=== PATIENT | female | born 1965 | race Caucasian/White ===

== ENCOUNTER 2016-09-25 07:35 | Observation (INO) | payer MEDICAID ==
[~2016-09-25] VITALS: Ht 154.9 cm; Wt 50.0 kg
[~2016-09-25 07:35] MED LIST: ATEN50TA PO; ATOR40TA16 PO; BLOOD GLUCOSE T1 TES; DEPO150I IM; DICL50TA PO; INSU1INJ5 SQ; LEVEMIR; LYRI75CA PO; MEDR150P IM; MELO-1 PO; NOVOLOGP2 SQ; OMEP20TA PO; REGL5TAB PO; TRAM50TA PO; needles
[2016-09-25 07:42] VITALS: BP 177/87; PULSE 88; RESP 20; TEMP 98.7; O2SAT 100
[2016-09-25] MEDS ORDERED: SODIUM CHLORIDE 0.9% FLUSH 10 ML FLUSH IV FLUSH PRN (08:15)
[2016-09-25 08:31] LABS: BASOPHIL # 0.1 TH/MM3 (0-0.2); BASOPHIL % 0.8 % (0.0-2.0); EOSINOPHIL # 0.3 TH/MM3 (0-0.4); EOSINOPHIL % 2.7 % (0.0-4.0); HEMATOCRIT 37.7 % (35.0-46.0); HEMO FLAGS DIFF FINAL; LYMPH % 17.6 % (9.0-44.0); MEAN CELL VOLUME 95.2 FL (80.0-100.0); MEAN CORPUSCULAR HEMOGLOBIN 32.8 PG (27.0-34.0); MEAN CORPUSCULAR HGB CONC 34.4 % (32.0-36.0); MONO % 7.6 % (0.0-8.0); NEUT % 71.3 % (16.0-70.0); PLATELET COUNT 278 TH/MM3 (150-450); RED BLOOD COUNT 3.97 MIL/MM3 (4.00-5.30); RED CELL DISTRIBUTION WIDTH 12.4 % (11.6-17.2); WHITE BLOOD COUNT 11.3 TH/MM3 (4.0-11.0)
--- NOTE | 2016-09-25 08:33 | PD ---
HPI . "Guts are killing me" Chief Complaint: Abdominal Pain Time Seen by Provider: 07:47 Travel History International Travel<30 days: No Contact w/Intl Traveler<30days: No Traveled to known affect area: No History of Present Illness HPI 50 year old female with a history of chronic pancreatitis presents complaining of abdominal pain. Patient reports pain is located "at the pancreas through to the back". Patient also reports that it is in her lower abdomen bilaterally and points to all over her abdomen. Reports that the pain comes and goes and is crampy, occasionally sharp. She currently rates the pain as 8/10. Reports she has had these pains for a long time but they have been "worsening over a long time". She has been out of her tramadol since July and has been unable to get it filled at [facility] and pain management is full for weeks. Per patient, she had a gastric emptying test done at [facility] last month but they never followed up with her. States that the pain is worse with food but this has been ongoing issue for her. States that the "pancreas part is worse with movement". Alleviated partially with tramadol. She denies any fevers, nausea, vomiting, shortness of breath, chest pain, or changes with her urine. She had a bowel movement this morning which she states was small but soft. She reports some associated abdominal bloating. LMP was sometime last month. PFSH Past Medical History Arthritis: Yes Cancer: No Cardiovascular Problems: No Diabetes: Yes Patient Takes Glucophage: No Diminished Hearing: No Endocrine: Yes Gastrointestinal Disorders: Yes (OCCASIONAL GERD) Genitourinary: No Hepatitis: No Hiatal Hernia: No Hypertension: Yes Musculoskeletal: Yes (MID BACK AND NECK DDD) Neurologic: Yes (NEUROPATHY ) Psychiatric: No Reproductive: No Respiratory: No Pancreatitis: Yes Thyroid Disease: No Influenza Vaccination: Yes ?: Not : 4 Para: 4 Past Surgical History Abdominal Surgery: Yes (PANCREAS SURGERY--SIMILAR TO WHIPPLE PROCEDURE, CHOLY) AICD: No Body Medical Devices: SURGICAL CLIPS FROM PANCREATIC SURGERY Cardiac Surgery: No Cholecystectomy: Yes Ear Surgery: No Endocrine Surgery: No Eye Surgery: No Genitourinary Surgery: Yes (LEFT URETER REPAIR) Gynecologic Surgery: No Joint Replacement: No Oral Surgery: No Pacemaker: No Thoracic Surgery: No Other Surgery: Yes Social History Alcohol Use: Yes (occasional) Tobacco Use: Yes (1 PPD FOR 30+ YEARS) Substance Use: No Allergies-Medications (Allergen,Severity, Reaction): Coded Allergies: Penicillin (Verified Allergy, Severe, N/V, 09/25/16) Reported Meds & Prescriptions Reported Meds & Active Scripts Active Tramadol (Tramadol HCl) 50 Mg Tab 50 Mg PO Q6H PRN Lyrica (Pregabalin) 75 Mg Cap 75 Mg PO BID [needles] BID Levemir Flextouch Pen Inj (Insulin Detemir) 300 unit/3 ML Pen 15 Units SQ BID Meloxicam 15 Mg Tab 15 Mg PO DAILY Blood Glucose Test Strips 1 Shoshana Shoshana 1 Strips .ROUTE TIDPC Reglan (Metoclopramide HCl) 5 Mg Tab 5 Mg PO TIDAC Diclofenac Potassium 50 Mg Tab 50 Mg PO TID Depo-Provera Inj (Medroxyprogesterone Inj) 150 Mg/Ml Inj 150 Mg IM Q90D [levemir flextouch] 15 Units BID Depoprovera 150 Mg Vial (Medroxyprogesterone Acetate) 150 Mg/Ml Susp 150 Mg IM Q90D Reported Novolog Inj (Insulin Aspart) 1,000 Unit/10 Ml Vial 1-9 Units SQ ACHS Max dose at bedtime:( )units; sugars less than 70,(0)units; sugars 150-199,(1) unit; sugars 200-249,(3) units; sugars 250-299,(5) units; sugars 300-349,(7) units; sugars greater than 349,(9) units Atenolol 50 Mg Tab 50 Mg PO DAILY Atorvastatin (Atorvastatin Calcium) 40 Mg Tab 40 Mg PO HS Omeprazole 20 Mg Tab 20 Mg PO DAILY Novolog (Insulin Aspart) 100 Units/ML Inj Unknown Dose SQ DIRECTED SLIDING SCALE Review of Systems General / Constitutional: No: Fever, Chills HENT: Positive: Headaches (occasional. ), No: Congestion Cardiovascular: No: Chest Pain or Discomfort, Tachycardia, Edema Respiratory: No: Cough, Shortness of Breath, Wheezing Gastrointestinal: Positive: Abdominal Pain, No: Nausea, Vomiting, Diarrhea Genitourinary: No: Urgency, Frequency, Dysuria Musculoskeletal: Positive: Pain (chronic back pain ) Skin: No Rash Physical Exam Narrative GENERAL: Awake and alert female in no acute distress. SKIN: Warm and dry. No rashes. HEAD: Atraumatic. Normocephalic. EYES: Pupils equal and round. Extraocular eye movements intact. ENT: No nasal bleeding or discharge. Mucous membranes pink and moist. NECK: Trachea midline. Neck supple. CARDIOVASCULAR: Regular rate and rhythm. No murmurs. RESPIRATORY: No accessory muscle use. Lungs clear to auscultation bilaterally. No wheezing. GASTROINTESTINAL: Large midline laparotomy scar. Additional scar in the left lower quadrant. Abdomen soft, non-tender, nondistended. MUSCULOSKELETAL: No obvious deformities. No edema. NEUROLOGICAL: Awake and alert. No obvious cranial nerve deficits. Motor grossly within normal limits. Normal speech. PSYCHIATRIC: Appropriate mood and affect; insight and judgment normal. Data Data Last Documented VS Vital Signs Date Time Temp Pulse Resp B/P Pulse Ox O2 Delivery O2 Flow Rate FiO2 09/25/16 07:42 98.7 88 20 177/87 100 Room Air Orders Complete Blood Count With Diff (09/25/16 08:13) Comprehensive Metabolic Panel (09/25/16 08:13) Lipase (09/25/16 08:13) Abdomen, Flat & Upright (09/25/16 ) Iv Access Insert/Monitor (09/25/16 08:13) Sodium Chloride 0.9% Flush (Ns Flush) (09/25/16 08:15) Urinalysis - C+S If Indicated (09/25/16 08:38) Labs Laboratory Tests Test 09/25/16 09/25/16 08:21 08:40 White Blood Count 11.3 TH/MM3 Red Blood Count 3.97 MIL/MM3 Hemoglobin 13.0 GM/DL Hematocrit 37.7 % Mean Corpuscular Volume 95.2 FL Mean Corpuscular Hemoglobin 32.8 PG Mean Corpuscular Hemoglobin 34.4 % Concent Red Cell Distribution Width 12.4 % Platelet Count 278 TH/MM3 Mean Platelet Volume 8.7 FL Neutrophils (%) (Auto) 71.3 % Lymphocytes (%) (Auto) 17.6 % Monocytes (%) (Auto) 7.6 % Eosinophils (%) (Auto) 2.7 % Basophils (%) (Auto) 0.8 % Neutrophils # (Auto) 8.0 TH/MM3 Lymphocytes # (Auto) 2.0 TH/MM3 Monocytes # (Auto) 0.9 TH/MM3 Eosinophils # (Auto) 0.3 TH/MM3 Basophils # (Auto) 0.1 TH/MM3 CBC Comment DIFF FINAL Differential Comment Sodium Level 135 MEQ/L Potassium Level 3.4 MEQ/L Chloride Level 105 MEQ/L Carbon Dioxide Level 20.9 MEQ/L Anion Gap 9 MEQ/L Blood Urea Nitrogen 9 MG/DL Creatinine 0.71 MG/DL Estimat Glomerular Filtration 87 ML/MIN Rate Random Glucose 185 MG/DL Calcium Level 8.7 MG/DL Total Bilirubin 0.4 MG/DL Aspartate Amino Transf 57 U/L (AST/SGOT) Alanine Aminotransferase 80 U/L (ALT/SGPT) Alkaline Phosphatase 119 U/L Total Protein 7.2 GM/DL Albumin 3.6 GM/DL Lipase 48 U/L Urine Color LIGHT-YELLOW Urine Turbidity CLEAR Urine pH 6.0 Urine Specific [place] 1.004 Urine Protein TRACE mg/dL Urine Glucose (UA) NEG mg/dL Urine Ketones NEG mg/dL Urine Occult Blood NEG Urine Nitrite NEG Urine Bilirubin NEG Urine Urobilinogen LESS THAN 2.0 MG/DL Urine Leukocyte Esterase LARGE Urine RBC LESS THAN 1 /hpf Urine WBC 2 /hpf Urine Squamous Epithelial 3 /hpf Cells Urine Bacteria OCC /hpf Microscopic Urinalysis Comment CULT NOT INDICATED MDM Medical Decision Making Medical Screen Exam Complete: Yes Emergency Medical Condition: Yes Differential Diagnosis Differentials include chronic pancreatitis, gastritis, peptic ulcer, UTI, constipation, GERD. Narrative Course Patient presents complaining of abdominal pain that she has had for a long time but has been progressively worsening. Reports that she has been out of her Tramadol since July and has been unable to get it filled to date. She comes in today because it is becoming unbearable and that she states that she "should have come in sooner". Her physical exam is unremarkable. No signs of acute pancreatitis at this time. She has a history of abdominal surgery in 1992 but has no signs of obstruction at this time. Last Impressions Abdomen X-Ray 09/25/16 0000 Signed Impressions: Service Date/Time: Sunday, September 25, 2016 08:34 - CONCLUSION: 1. Gaseous distention of loops of small bowel the colon but no definite findings to indicate bowel obstruction. 2. No definite renal stones identified. David Hill MD CT for PE was neg. Patient states that she is willing to stay in the [facility] for serial enzymes to make sure that her heart is OK. Diagnosis Primary Impression: Chest pain Qualified Code: R07.9 - Chest pain, unspecified type Admitting Information Admitting Physician Requests: Observation Condition: Stable Lisa Romeo MD Sep 25, 2016 08:33
--- NOTE | 2016-09-25 08:40 | RADRPT ---
EXAM DATE/TIME: 09/25/2016 08:34 [facility] COMPARISON: No previous studies available for comparison. INDICATIONS : Abdominal pain. MEDICAL HISTORY : Pancreatitis. SURGICAL HISTORY : Cholecystectomy. Ureter reconstruction, left. ENCOUNTER: Initial ACUITY: 4 - 6 months PAIN SCORE: 6/10 LOCATION: Bilateral abdomen. FINDINGS: The exam demonstrates gaseous distention of several loops of small bowel in the colon. There is still gas and stool down to the rectum. No definite findings to indicate bowel obstruction are seen. There are multiple surgical clips in the abdomen. No free air is identified. No abnormal calcifications are seen. The bony structures demonstrate degenerative changes but are otherwise intact. CONCLUSION: 1. Gaseous distention of loops of small bowel the colon but no definite findings to indicate bowel ob struction. 2. No definite renal stones identified. David Hill MD on September 25, 2016 at 8:37 Board Certified Radiologist. This report was verified electronically.
[2016-09-25 08:53] LABS: ALT (GPT) 80 U/L (10-53); ANION GAP 9 MEQ/L (5-15); AST (GOT) 57 U/L (15-37); BICARBONATE 20.9 MEQ/L (21.0-32.0); BLOOD UREA NITROGEN 9 MG/DL (7-18); CHLORIDE 105 MEQ/L (98-107); GLOMERULAR FILTRATION RATE 87 ML/MIN (>89); POTASSIUM 3.4 MEQ/L (3.5-5.1); SODIUM (NA) 135 MEQ/L (136-145)
[2016-09-25 08:56] LABS: ALKALINE PHOSPHATASE 119 U/L (45-117); TOTAL BILIRUBIN ADULT 0.4 MG/DL (0.2-1.0)
[2016-09-25 08:57] LABS: BACTERIA, URINE OCC /hpf; BLOOD, URINE NEG (NEG); COMMENT (UR) CULT NOT INDICATED; CULTURE IF INDICATED CULT NOT INDICATED; GLUCOSE,URINE NEG (NEG); KETONE, URINE NEG (NEG); NITRITE,URINE NEG (NEG); SQUAMOUS EPITHELIAL CELL URINE 3 /hpf (0-5); URINE COLOR LIGHT-YELLOW (YELLW/STRAW)
[2016-09-25] MEDS ORDERED: MACR100C2 PO (09:14)
== END 2016-09-25 09:38 | disposition home or self-care (01) ==
LOC: NEPC 07:35 → NEDA 09:08
PROVIDERS: ADMIT Internal Medicine Cardiovascular Disease; ATTEND Internal Medicine Cardiovascular Disease
DX: R10.9 Unspecified abdominal pain (principal); N39.0 Urinary tract infection, site not specified; R07.9 Chest pain, unspecified; R14.0 Abdominal distension (gaseous); M19.90 Unspecified osteoarthritis, unspecified site; Z79.899 Other long term (current) drug therapy
CPT/HCPCS: 74020; 80053; 81001; 83690; 85025; 99284

== ENCOUNTER 2017-12-06 12:37 | Inpatient (IN) ==
[2017-12-06] MEDS ORDERED: MethylPREDNISolone Sod Succinate Inj 125 MG/2 ML Vial IV.PUSH ONE (12:42)
[2017-12-06] MEDS ORDERED: Sod Chloride 0.9% Inj 1,000 ML IV.SIG SCH ×2 (12:45)
[2017-12-06] MEDS ORDERED: Famotidine PF Inj 20 MG/2 ML Vial IV.PUSH ONE (12:49)
--- NOTE | 2017-12-06 12:55 | ED ---
HPI General Chief Complaint: Shortness of Breath/Dyspnea Stated Complaint: Medical Time Seen by Provider: 12/06/17 12:42 Source: patient, EMS, RN notes reviewed and old records reviewed Mode of arrival: EMS Limitations: other (hypotension) History of Present Illness 51 y/o female presents by ambulance with palpable systolic pressure in the 50s and pulse ox of 88 on room air with note of shortness of breath and itchiness all over shortly after taking her Bactrim she was prescribed for cat scratches to her legs. She states she has never had this medication before. She denies complaints other than the itching and shortness of breath but history is limited given initial hypotension and generalized weakness Related Data Home Medications Medication Instructions Recorded Confirmed atenolol 25 mg PO DAILY 12/06/17 12/06/17 atorvastatin 10 mg PO DAILY 12/06/17 12/06/17 insulin detemir U-100 [Levemir 30 unit SUB-Q BID 12/06/17 12/06/17 U-100 Insulin] sulfamethoxazole-trimethoprim 1 tab PO BID 12/06/17 12/06/17 [Bactrim DS] Allergies Allergy/AdvReac Type Severity Reaction Status Date / Time penicillin G Allergy Severe N/V Unverified 10/27/16 22:08 sulfamethoxazole Allergy Severe Hypotension, Verified 12/06/17 13:09 [From Bactrim] shortness of breath trimethoprim [From Bactrim] Allergy Severe Hypotension, Verified 12/06/17 13:09 shortness of breath Review of Systems ROS: all other systems reviewed are negative [facility] Medical History Medical History Diabetes (Acute) Hypertension (Acute) Social History Social History Substance History: No History of Abuse Second Hand Smoke Exposure: No Smoking Status: Never smoker How Often Do You Have a Drink Containing Alcohol: Never Recent Travel in [facility] within the Last 8 Weeks: No Recent Out of Country Travel within the Last 8 Weeks: No Immunization History Tetanus Immunization: Unsure Exam Narrative Exam Narrative: GENERAL: 51 y/o female who appaears ill SKIN: Focused skin assessment warm/dry. Patient has no hives but she has diffuse reddening of her skin with Scratches noted to her lower legs HEAD: Atraumatic. Normocephalic. EYES: Pupils equal and round. No scleral icterus. No injection or drainage. ENT: No nasal bleeding or discharge. Mucous membranes pink and moist. Mild uvula edema NECK: Trachea midline. No JVD. CARDIOVASCULAR: Regular rate and rhythm. RESPIRATORY: No accessory muscle use. Faint expiratory wheezing bilaterally. GASTROINTESTINAL: Abdomen soft, non-tender, nondistended. MUSCULOSKELETAL: No obvious deformities. No clubbing. No cyanosis. No edema. NEUROLOGICAL: Awake and alert. Motor grossly within normal limits. Normal speech. Course Reevaluation(s) Reevaluation #1: On recheck patient's blood pressure has started to improve some after epinephrine and IV fluids. Continue to closely monitor. Reevaluation #2: patient updated and agrees to admit, significantly improved but given initial critical status agrees to observation for further care Consultations Consultation #1: resident team agrees to admit Initial Documented Vital Signs Pulse Rate 113 H 12/06/17 12:38 Respiratory Rate 20 12/06/17 12:38 Blood Pressure 69/48 L 12/06/17 12:38 Pulse Oximetry 94 L 12/06/17 12:38 Last Documented Vital Signs Pulse Rate 82 12/06/17 14:17 Respiratory Rate 19 12/06/17 14:17 Blood Pressure 134/70 12/06/17 14:17 Pulse Oximetry 100 12/06/17 14:17 Critical Care Time Critical Care Time: Yes Total Critical Care Time: 45 Attestation: Aggregate critical care time was 45 minutes. Time to perform other separately billable procedures was not included in the critical care time. My time did not include minutes spent treating any other patients simultaneously or on activities that did not directly contribute to the patient's treatment. The services I provided to this patient were to treat and/or prevent clinically significant deterioration that could result in: shock, I provided critical care services requiring my management, as noted below: Chart data review, documentation time, medication orders and management, vital sign assessments/reviewing monitor data, ordering and reviewing lab tests, ordering and interpreting/reviewing x-rays and diagnostic studies, care of the patient and discussion of the patient with the admitting physicians. Medical Decision Making MDM Narrative Medical decision making narrative: Patient arrived hypotensive and hypoxic after new medication with symptoms of shortness of breath and itchiness all over. Patient given 0.3 mg of epinephrine injection while getting IV access. Once IV was obtained she was given IV fluid boluses and blood work was sent in addition to further allergic reaction treatment with steroids, Pepcid, Benadryl and she will be monitored closely Medical Screen Exam Complete: Yes Emergency Medical Condition: Yes Differential Diagnosis Differential Diagnosis: Anaphylactic shock, sepsis, anemia, pneumonia, pneumothorax Lab Data Lab results reviewed: Yes I reviewed the patient's lab results. Result diagrams: 12/06/17 12:53 12/06/17 12:53 Lab Results 12/06/17 12/06/17 12/06/17 Range/Units 12:53 12:53 12:53 WBC 9.4 (4.0-11.0) th/mm3 RBC 4.54 (4.00-5.30) mil/mm3 Hgb 15.4 H (11.6-15.3) gm/dL Hct 44.4 (35.0-46.0) % MCV 98.0 (80.0-100.0) fL MCH 33.8 (27.0-34.0) pg MCHC 34.5 (32.0-36.0) % RDW 13.0 (11.6-17.2) % Plt Count 428 (150-450) th/mm3 MPV 8.3 (7.0-11.0) fL Neut % (Auto) 62.8 (16.0-70.0) % Lymph % (Auto) 28.6 (9.0-44.0) % Foard % (Auto) 6.1 (0.0-8.0) % Eos % (Auto) 1.8 (0.0-4.0) % Baso % (Auto) 0.7 (0.0-2.0) % Neut # (Auto) 5.9 (1.8-7.7) th/mm3 Lymph # (Auto) 2.7 (1.0-4.8) th/mm3 Foard # (Auto) 0.6 (0.0-0.9) th/mm3 Eos # (Auto) 0.2 (0.0-0.4) th/mm3 Baso # (Auto) 0.1 (0.0-0.2) th/mm3 WBC Differential . Differential Comment Auto diff final PT 10.0 (9.8-11.6) sec INR 1.0 Ratio APTT 21.8 L (24.3-30.1) sec Puncture Site Patient Temperature O2 Saturation (90-100) % ABG pH (7.380-7.420) ABG pCO2 (38-42) mmHg ABG pO2 (61-120) mmHg ABG HCO3 (22-26) mmol/L ABG O2 Content (12.0-20.0) Vol % ABG Base Excess (-2-2) mmol/L ABG Methemoglobin (0-2) % Dejuan Test Hemoglobin (12.0-16.0) G/DL Carboxyhemoglobin (0-4) % O2 Delivery Device Liter Flow L/M Critical Value Sodium 143 (136-145) meq/L Potassium 3.4 L (3.5-5.1) meq/L Chloride 108 H (98-107) meq/L Carbon Dioxide 20.7 L (21.0-32.0) meq/L Anion Gap 14 (5-15) meq/L BUN 18 (7-18) mg/dL Creatinine 1.00 (0.50-1.00) mg/dL Estimated GFR 58 L (>89) mL/min Random Glucose 250 H (74-106) mg/dL Lactic Acid (0.4-2.0) mmol/L Calcium 7.6 L (8.5-10.1) mg/dL Magnesium 1.5 (1.5-2.5) mg/dL Total Bilirubin 0.2 (0.2-1.0) mg/dL AST 12 L (15-37) U/L ALT 14 (10-53) U/L Alkaline Phosphatase 91 (45-117) U/L Total Creatine Kinase 77 (26-192) U/L Troponin I Less than 0.02 L (0.02-0.05) ng/mL B-Natriuretic Peptide (0-100) pg/mL Total Protein 5.5 L (6.4-8.2) g/dL Albumin 2.6 L (3.4-5.0) g/dL Urine Color (Yellw/Straw) Urine Clarity (Clear) Urine pH (5.0-8.5) Ur Specific [place] (1.002-1.035) Urine Protein (Neg-Trace) mg/dL Urine Glucose (UA) (Negative) mg/dL Urine Ketones (Negative) mg/dL Urine Occult Blood (Negative) Urine Nitrate (Negative) Urine Bilirubin (Negative) Urine Urobilinogen (Less than 2) mg/dL Ur Leukocyte Esterase (Negative) Urine RBC (0-3) /hpf Urine WBC (0-5) /hpf Ur Squamous Epith Cells (0-5) /hpf Amorphous Sediment (None) /hpf Urine Bacteria (None) /hpf Urine Mucus (Occasional) /lpf Micro UA Comment Ur Microscopic Review Urine Culture Comments 12/06/17 12/06/17 12/06/17 Range/Units 12:53 12:53 12:55 WBC (4.0-11.0) th/mm3 RBC (4.00-5.30) mil/mm3 Hgb (11.6-15.3) gm/dL Hct (35.0-46.0) % MCV (80.0-100.0) fL MCH (27.0-34.0) pg MCHC (32.0-36.0) % RDW (11.6-17.2) % Plt Count (150-450) th/mm3 MPV (7.0-11.0) fL Neut % (Auto) (16.0-70.0) % Lymph % (Auto) (9.0-44.0) % [place]oard % (Auto) (0.0-8.0) % Eos % (Auto) (0.0-4.0) % Baso % (Auto) (0.0-2.0) % Neut # (Auto) (1.8-7.7) th/mm3 Lymph # (Auto) (1.0-4.8) th/mm3 Foard # (Auto) (0.0-0.9) th/mm3 Eos # (Auto) (0.0-0.4) th/mm3 Baso # (Auto) (0.0-0.2) th/mm3 WBC Differential Differential Comment PT (9.8-11.6) sec INR Ratio APTT (24.3-30.1) sec Puncture Site Patient Temperature O2 Saturation (90-100) % ABG pH (7.380-7.420) ABG pCO2 (38-42) mmHg ABG pO2 (61-120) mmHg ABG HCO3 (22-26) mmol/L ABG O2 Content (12.0-20.0) Vol % ABG Base Excess (-2-2) mmol/L ABG Methemoglobin (0-2) % Dejuan Test Hemoglobin (12.0-16.0) G/DL Carboxyhemoglobin (0-4) % O2 Delivery Device Liter Flow L/M Critical Value Sodium (136-145) meq/L Potassium (3.5-5.1) meq/L Chloride (98-107) meq/L Carbon Dioxide (21.0-32.0) meq/L Anion Gap (5-15) meq/L BUN (7-18) mg/dL Creatinine (0.50-1.00) mg/dL Estimated GFR (>89) mL/min Random Glucose (74-106) mg/dL Lactic Acid 2.6 H (0.4-2.0) mmol/L Calcium (8.5-10.1) mg/dL Magnesium Cancelled (1.5-2.5) mg/dL Total Bilirubin (0.2-1.0) mg/dL AST (15-37) U/L ALT (10-53) U/L Alkaline Phosphatase (45-117) U/L Total Creatine Kinase Cancelled (26-192) U/L Troponin I (0.02-0.05) ng/mL B-Natriuretic Peptide 12 (0-100) pg/mL Total Protein (6.4-8.2) g/dL Albumin (3.4-5.0) g/dL Urine Color (Yellw/Straw) Urine Clarity (Clear) Urine pH (5.0-8.5) Ur Specific [place] (1.002-1.035) Urine Protein (Neg-Trace) mg/dL Urine Glucose (UA) (Negative) mg/dL Urine Ketones (Negative) mg/dL Urine Occult Blood (Negative) Urine Nitrate (Negative) Urine Bilirubin (Negative) Urine Urobilinogen (Less than 2) mg/dL Ur Leukocyte Esterase (Negative) Urine RBC (0-3) /hpf Urine WBC (0-5) /hpf Ur Squamous Epith Cells (0-5) /hpf Amorphous Sediment (None) /hpf Urine Bacteria (None) /hpf Urine Mucus (Occasional) /lpf Micro UA Comment Ur Microscopic Review Urine Culture Comments 12/06/17 12/06/17 Range/Units 12:57 16:12 WBC (4.0-11.0) th/mm3 RBC (4.00-5.30) mil/mm3 Hgb (11.6-15.3) gm/dL Hct (35.0-46.0) % MCV (80.0-100.0) fL MCH (27.0-34.0) pg MCHC (32.0-36.0) % RDW (11.6-17.2) % Plt Count (150-450) th/mm3 MPV (7.0-11.0) fL Neut % (Auto) (16.0-70.0) % Lymph % (Auto) (9.0-44.0) % [place] % (Auto) (0.0-8.0) % Eos % (Auto) (0.0-4.0) % Baso % (Auto) (0.0-2.0) % Neut # (Auto) (1.8-7.7) th/mm3 Lymph # (Auto) (1.0-4.8) th/mm3 [place] # (Auto) (0.0-0.9) th/mm3 Eos # (Auto) (0.0-0.4) th/mm3 Baso # (Auto) (0.0-0.2) th/mm3 WBC Differential Differential Comment PT (9.8-11.6) sec INR Ratio APTT (24.3-30.1) sec Puncture Site Right radial Patient Temperature 98.6 O2 Saturation 89 L* (90-100) % ABG pH 7.41 (7.380-7.420) ABG pCO2 35 L (38-42) mmHg ABG pO2 72 (61-120) mmHg ABG HCO3 22 (22-26) mmol/L ABG O2 Content 17.6 (12.0-20.0) Vol % ABG Base Excess -2.3 L (-2-2) mmol/L ABG Methemoglobin 0.7 (0-2) % Dejuan Test Y Hemoglobin 14.0 (12.0-16.0) G/DL Carboxyhemoglobin 4.2 H (0-4) % O2 Delivery Device Nasal cannula Liter Flow 3.00 L/M Critical Value Yes Sodium (136-145) meq/L Potassium (3.5-5.1) meq/L Chloride (98-107) meq/L Carbon Dioxide (21.0-32.0) meq/L Anion Gap (5-15) meq/L BUN (7-18) mg/dL Creatinine (0.50-1.00) mg/dL Estimated GFR (>89) mL/min Random Glucose (74-106) mg/dL Lactic Acid (0.4-2.0) mmol/L Calcium (8.5-10.1) mg/dL Magnesium (1.5-2.5) mg/dL Total Bilirubin (0.2-1.0) mg/dL AST (15-37) U/L ALT (10-53) U/L Alkaline Phosphatase (45-117) U/L Total Creatine Kinase (26-192) U/L Troponin I (0.02-0.05) ng/mL B-Natriuretic Peptide (0-100) pg/mL Total Protein (6.4-8.2) g/dL Albumin (3.4-5.0) g/dL Urine Color Straw (Yellw/Straw) Urine Clarity Clear (Clear) Urine pH 6.0 (5.0-8.5) Ur Specific [place] 1.005 (1.002-1.035) Urine Protein Negative (Neg-Trace) mg/dL Urine Glucose (UA) 150 H (Negative) mg/dL Urine Ketones Negative (Negative) mg/dL Urine Occult Blood Small H (Negative) Urine Nitrate Negative (Negative) Urine Bilirubin Negative (Negative) Urine Urobilinogen Less than 2 (Less than 2) mg/dL Ur Leukocyte Esterase Negative (Negative) Urine RBC 1 (0-3) /hpf Urine WBC 1 (0-5) /hpf Ur Squamous Epith Cells 1 (0-5) /hpf Amorphous Sediment Rare H (None) /hpf Urine Bacteria Rare H (None) /hpf Urine Mucus Few H (Occasional) /lpf Micro UA Comment Culture not ind Ur Microscopic Review Not Reportable Urine Culture Comments Culture not ind Imaging Data Attestation: I personally reviewed and interpreted this imaging study as follows : Radiologist's impression: Chest X-Ray 12/06/17 12:42 CONCLUSION: 1. No acute cardiopulmonary disease. Discharge Plan Discharge Disposition Patient Disposition: 30 Still Patient Discharge Details Diagnosis: Anaphylaxis caused by sulfite salt Physicians Team ED Provider: Trudy Moody Primary Care Provider: UNKNOWN, Attending Provider: Milad,Bria Discharge Interventions Interventions: Vital Signs Last Done: 12/06/17 14:17 Status ED Status: Admitted Patient
[2017-12-06 13:11] LABS: Baso # (Auto) 0.1 th/mm3 (0.0-0.2); Baso % (Auto) 0.7 % (0.0-2.0); Eos # (Auto) 0.2 th/mm3 (0.0-0.4); Eos % (Auto) 1.8 % (0.0-4.0); Hematocrit 44.4 % (35.0-46.0); Hemoglobin 15.4 gm/dL (11.6-15.3); Lymph # (Auto) 2.7 th/mm3 (1.0-4.8); Lymph % (Auto) 28.6 % (9.0-44.0); Mean Corpuscular HGB Conc 34.5 % (32.0-36.0); Mean Corpuscular Hemoglobin 33.8 pg (27.0-34.0); Mean Platelet Volume 8.3 fL (7.0-11.0); Mono # (Auto) 0.6 th/mm3 (0.0-0.9); Mono % (Auto) 6.1 % (0.0-8.0); Neut # (Auto) 5.9 th/mm3 (1.8-7.7); Neut % (Auto) 62.8 % (16.0-70.0); Platelet Count 428 th/mm3 (150-450); Red Blood Count 4.54 mil/mm3 (4.00-5.30); White Blood Count 9.4 th/mm3 (4.0-11.0)
--- NOTE | 2017-12-06 13:21 | XR ---
EXAM DATE: 12/06/2017 1:14 PM EDT AGE/SEX: 51 years / Female INDICATIONS: Short of breath. CLINICAL DATA: This is the patient's initial encounter. Patient reports that signs and symptoms have been present for 1 day and indicates a pain score of 0/10. MEDICAL/SURGICAL HISTORY: . smokes, pancreatitis Cholecystectomy. left ureter reconstruction. COMPARISON: [facility], XR CHEST PA AND LAT, 04/10/2015. . FINDINGS: A single AP view of the chest demonstrates the lungs to be symmetrically aerated without evidence of mass, infiltrate or effusion. The cardiomediastinal contours are unremarkable. Osseous structures a re intact. CONCLUSION: 1. No acute cardiopulmonary disease. Electronically signed by: Juan Diego Reid MD 12/06/2017 1:19 PM EDT
[2017-12-06 13:22] LABS: Activated Partial Thrombo Time 21.8 sec (24.3-30.1)
[2017-12-06 13:41] LABS: ABG Base Excess -2.3 mmol/L (-2-2); ABG PCO2 35 mmHg (38-42); ABG PO2 72 mmHg (61-120)
[2017-12-06 15:07] LABS: Alanine Aminotransferase 14 U/L (10-53); Albumin 2.6 g/dL (3.4-5.0); Anion Gap 14 meq/L (5-15); Aspartate Aminotransferase 12 U/L (15-37); Blood Urea Nitrogen 18 mg/dL (7-18); Calcium 7.6 mg/dL (8.5-10.1); Carbon Dioxide 20.7 meq/L (21.0-32.0); Chloride 108 meq/L (98-107); Glomerular Filtration Rate 58 mL/min (>89); Glucose,Random 250 mg/dL (74-106); Magnesium 1.5 mg/dL (1.5-2.5); Potassium 3.4 meq/L (3.5-5.1); Sodium 143 meq/L (136-145)
[2017-12-06 15:12] LABS: Alkaline Phosphatase 91 U/L (45-117); Total Protein 5.5 g/dL (6.4-8.2)
[2017-12-06 15:14] LABS: Creatine Kinase 77 U/L (26-192)
[2017-12-06] MEDS ORDERED: Sodium Chlor 0.9% Inj 500 ML IV.SIG SCH (16:00)
[2017-12-06 16:33] LABS: Amorphous Sediment,Urine Rare /hpf; Bacteria,Urine Rare /hpf; Bilirubin,Urine Negative (Negative); Clarity,Urine Clear (Clear); Color,Urine Straw (Yellw/Straw); Glucose,Urine (UA) 150 mg/dL (Negative); Leukocyte Esterase,Urine Negative (Negative); Mucus,Urine Few /lpf (Occasional); Nitrite,Urine Negative (Negative); Specific Gravity,Urine 1.005 (1.002-1.035); Squamous Epithelial Cell,Urine 1 /hpf (0-5)
--- NOTE | 2017-12-06 17:20 | P.PNFP ---
Subjective Interval history: This is a 51-year-old female who was seen for her description of cat scratches which she thought were infected, treated at [facility] and given a prescription for Bactrim. She picked up the prescription, took the Bactrim at home, and reports that within 5-15 minutes she started to have difficulty breathing she was itchy and became frightened and called 911. She was unable to speak but her son apparently came in and was able to speak for her. [facility] was unable to get access but she was successfully resuscitated in the emergency department with steroids and H2 blockers and fluids. Initially her blood pressure was 58 and she was essentially unresponsive. She is seen today after having been resuscitated and received 2 L of fluids. She still does not feel quite right. She reports that she has had a kitten that she rescued approximately a month ago and has been receiving scratches and bites from this kitten often. She thinks that some of the lesions on her legs may be infected, she has been using Neosporin, peroxide, other antibiotic creams to no avail. She does not really know how long she has had these lesions. She is a smoker, a pack per day for 30 years. Please see history and physical examination for this admission for additional historical details including past, family, social history and review of systems at the time of admission. Results - Labs Result diagrams: 12/06/17 12:53 12/06/17 12:53 Abnormal lab results 12/06/17 12/06/17 12/06/17 Range/Units 12:53 12:53 12:53 Hgb 15.4 H (11.6-15.3) gm/dL APTT 21.8 L (24.3-30.1) sec O2 Saturation (90-100) % ABG pCO2 (38-42) mmHg ABG Base Excess (-2-2) mmol/L Carboxyhemoglobin (0-4) % Potassium 3.4 L (3.5-5.1) meq/L Chloride 108 H (98-107) meq/L Carbon Dioxide 20.7 L (21.0-32.0) meq/L Estimated GFR 58 L (>89) mL/min Random Glucose 250 H (74-106) mg/dL Lactic Acid (0.4-2.0) mmol/L Calcium 7.6 L (8.5-10.1) mg/dL AST 12 L (15-37) U/L Troponin I Less than 0.02 L (0.02-0.05) ng/mL Total Protein 5.5 L (6.4-8.2) g/dL Albumin 2.6 L (3.4-5.0) g/dL Urine Glucose (UA) (Negative) mg/dL Urine Occult Blood (Negative) Amorphous Sediment (None) /hpf Urine Bacteria (None) /hpf Urine Mucus (Occasional) /lpf 12/06/17 12/06/17 12/06/17 Range/Units 12:55 12:57 16:12 Hgb (11.6-15.3) gm/dL APTT (24.3-30.1) sec O2 Saturation 89 L* (90-100) % ABG pCO2 35 L (38-42) mmHg ABG Base Excess -2.3 L (-2-2) mmol/L Carboxyhemoglobin 4.2 H (0-4) % Potassium (3.5-5.1) meq/L Chloride (98-107) meq/L Carbon Dioxide (21.0-32.0) meq/L Estimated GFR (>89) mL/min Random Glucose (74-106) mg/dL Lactic Acid 2.6 H (0.4-2.0) mmol/L Calcium (8.5-10.1) mg/dL AST (15-37) U/L Troponin I (0.02-0.05) ng/mL Total Protein (6.4-8.2) g/dL Albumin (3.4-5.0) g/dL Urine Glucose (UA) 150 H (Negative) mg/dL Urine Occult Blood Small H (Negative) Amorphous Sediment Rare H (None) /hpf Urine Bacteria Rare H (None) /hpf Urine Mucus Few H (Occasional) /lpf Short CBC 12/06/17 Range/Units 12:53 WBC 9.4 (4.0-11.0) th/mm3 Hgb 15.4 H (11.6-15.3) gm/dL Hct 44.4 (35.0-46.0) % Plt Count 428 (150-450) th/mm3 BMP 12/06/17 12:53 Sodium 143 Potassium 3.4 L Chloride 108 H Carbon Dioxide 20.7 L BUN 18 Creatinine 1.00 Calcium 7.6 L Cardiac Enzymes 12/06/17 12/06/17 Range/Units 12:53 12:53 Total Creatine Kinase 77 Cancelled (26-192) U/L Troponin I Less than 0.02 L (0.02-0.05) ng/mL Liver Function 12/06/17 Range/Units 12:53 Total Bilirubin 0.2 (0.2-1.0) mg/dL AST 12 L (15-37) U/L ALT 14 (10-53) U/L Alkaline Phosphatase 91 (45-117) U/L Albumin 2.6 L (3.4-5.0) g/dL Urine 12/06/17 Range/Units 16:12 Urine Color Straw (Yellw/Straw) Urine Clarity Clear (Clear) Urine pH 6.0 (5.0-8.5) Ur Specific [place] 1.005 (1.002-1.035) Urine Protein Negative (Neg-Trace) mg/dL Urine Glucose (UA) 150 H (Negative) mg/dL - Imaging Impressions Chest X-Ray 12/06/17 12:42 CONCLUSION: 1. No acute cardiopulmonary disease. Physical Exam Vital signs: Vital Signs 12/06/17 12:38 12/06/17 12:45 12/06/17 13:13 Pulse Rate 113 H 94 H Respiratory Rate 20 22 Blood Pressure 69/48 L 133/59 L Pulse Oximetry 94 L 94 L 100 12/06/17 13:14 12/06/17 14:17 Pulse Rate 82 Respiratory Rate 19 Blood Pressure 134/70 Pulse Oximetry 98 100 Intake & Output 12/05/17 12/06/17 12/06/17 18:59 06:59 18:59 Intake Total 1999 Balance 1999 Weight 58.967 kg Intake: IV 1999 NS Inj 1,000 ML @ Wide Open IV. 1999 SIG BOLUS SHAD Rx#:[id number] - Additional findings Additional findings: GENERAL: Well-nourished, well-developed patient. Pleasant. No acute distress. Coughing frequently SKIN: Warm and dry. She has a few scratches on the right lower extremity and multiple ulcerated chronic and scarred lesions on the left lower extremity and on both forearms which appear to have been chronically disrupted. HEAD: Normocephalic, atraumatic. EYES: No scleral icterus. No injection or drainage. Extraocular movements intact. Conjunctivae pink. CARDIAC: Normal rate and regular rhythm, normal S1/S2, no murmur, rub or gallop. RESPIRATORY: CTAB, no crackles or wheezes. No accessory muscle use. Coughing frequently GASTROINTESTINAL: Abdomen nondistended. Bowel sounds present MUSCULOSKELETAL: No cyanosis or edema. NEURO: Cranial nerves II through XII grossly intact. No obvious focal neurologic deficits. Moves all extremities well. Normal gait. PSYCH: Normal mood and affect. Good eye contact. Fair insight and judgment. Normal speech. Assessment and Plan - Assessment (1) Anaphylaxis caused by sulfite salt Code(s): T50.3X1A - Poisoning by electrolytic, caloric and water-balance agents , accidental (unintentional), initial encounter Status: Acute - Assessment and Plan Discussed Condition With: The medicine B team Discharge Planning: See orders. Certainly will observe overnight for stability. - Attending Attestation Patient seen, examined and discussed with the medicine team. See orders. I agree with the plan.
[2017-12-06] MEDS ORDERED: Dextrose 50% in Water 50 ML Vial IV.PUSH PRN ×2 (17:28→17:30)
[2017-12-06] MEDS ORDERED: Sodium Chloride 0.9% 2 ML Flush PRN IV.FLUSH (17:53)
--- NOTE | 2017-12-06 19:15 | P.HPFP ---
History of Present Illness Primary Care Physician: UNKNOWN Chief Complaint: Anaphylactic shock History of Present Illness: Patient is a 51-year-old female with a history of hypertension, hyperlipidemia, and diabetes who presented after being brought by EMS for anaphylactic shock about 15 minutes after taking Bactrim. She was seen at the [facility] and given a prescription for Bactrim for what she describes as infection of cat scratches. She reports that she has never taken this medicine before, and that she started feeling itchy 5 minutes after taking Bactrim. She then called 911 and was unable to speak on the phone. EMS was unable to obtain IV access, she was brought to the hospital, initial systolic blood pressure in the ED was in the 50s, she was unresponsive, she was given IM epinephrine, 2 L of normal saline, IV Decadron, Pepcid, and Benadryl. She reports that she got this kitten more than 1 month ago and has multiple scratches all over her body from said kitten. It is unclear how long she has had many of these lesions She has a past medical history significant for hypertension, hyperlipidemia, and diabetes. She is a pack per day smoker with a 20 pack year history. She lives by herself and expresses no concerns with the stability of her housing. - Diagnosis (1) Anaphylaxis caused by sulfite salt (2) Skin lesion (3) Hypertension (4) Hyperlipemia Inpatient Certification: I certify that the inpatient services were ordered in accordance with Medicare regulations governing the order. This includes certification that hospital inpatient services are reasonable and necessary and in the case of services not specified as inpatient-only under 42 CFR 419.22(n), that they are appropriately provided as inpatient services in accordance to with the 2-midnight benchmark under 43 CFR 412.3(e) Estimated Total Length of Stay (Days): 1 Plans for Post Hospital Care: Home Review of Systems Constitutional: Denies body ache(s), Denies chills, Denies fever(s), Denies weakness Eyes: Denies change in vision Ears, Nose, Mouth, and Throat: Denies abnormal hearing Cardiovascular: Reports chest pain Comments: No change in chest pain from baseline Respiratory: Reports cough, Reports shortness of breath, Denies chest congestion Comments: No change in shortness of breath from baseline Gastrointestinal: Denies abdominal pain, Denies change in bowel habits Comments: Denies dysuria PMFSH - History History Provided By: Patient - Medical History Medical History: Medical History (Last Updated 12/06/17 @ 18:50 by Ned Ontiveros MD, R1) Diabetes Hyperlipemia Hypertension - Social History I have reviewed the patient's Social History: Yes - Tobacco History Second Hand Smoke Exposure: No Tobacco Use In Past 30 Days: Yes Smoking Status: Current every day smoker (1 PPD) Tobacco Type: Cigarettes - Alcohol History How Often Do You Have a Drink Containing Alcohol: Never - Substance Use History Substance History: No History of Abuse - Travel History Recent Travel in the [facility] Within the Last 8 Weeks: No Recent Travel Out of the Country Within the Last 8 Weeks: No - Immunization History Tetanus Immunization: Unsure Medications and Allergies Active Medications: Active Medications Atenolol (Tenormin) 25 mg PO DAILY SHAD Atorvastatin Calcium (Lipitor) 10 mg PO HS SHAD Dextrose (D50w Vial) 50 ml IV.PUSH UNSCH PRN PRN Reason: PER HYPOGLYCEMIA PROTOCOL Diphenhydramine HCl (Benadryl) 25 mg PO Q6H PRN PRN Reason: ITCHING Glucagon (Glucagon Inj) 1 mg OTHER PRN PRN PRN Reason: for Hypoglycemia Protocol Sodium Chloride (Ns Inj) 1,000 mls @ 0 mls/hr IV.SIG BOLUS SHAD Last Infusion: 12/06/17 14:04 Dose: Infused Sodium Chloride (Ns Inj) 1,000 mls @ 0 mls/hr IV.SIG BOLUS SHAD Last Infusion: 12/06/17 14:04 Dose: Infused Sodium Chloride (Ns Inj) 500 mls @ 0 mls/hr IV.SIG BOLUS SHAD Insulin Aspart (Novolog Insulin Correctional Sugar Inj) 0 unit SQ ACHS SHAD; Protocol Insulin Detemir (Levemir Inj) 30 unit SQ BID SHAD Sodium Chloride (Ns Flush) 2 ml IV.FLUSH BID SHAD Sodium Chloride (Ns Flush) 2 ml IV.FLUSH PRN PRN PRN Reason: FLUSH AFTER USING IV ACCESS Allergies Allergy/AdvReac Type Severity Reaction Status Date / Time penicillin G Allergy Severe N/V Unverified 10/27/16 22:08 sulfamethoxazole Allergy Severe Hypotension, Verified 12/06/17 13:09 [From Bactrim] shortness of breath trimethoprim [From Bactrim] Allergy Severe Hypotension, Verified 12/06/17 13:09 shortness of breath Home Medications Medication Instructions Recorded Confirmed Type atenolol 25 mg PO DAILY 12/06/17 12/06/17 History atorvastatin 10 mg PO DAILY 12/06/17 12/06/17 History insulin detemir U-100 [Levemir 30 unit SUB-Q BID 12/06/17 12/06/17 History U-100 Insulin] sulfamethoxazole-trimethoprim 1 tab PO BID 12/06/17 12/06/17 History [Bactrim DS] Exam Vital signs: Vital Signs 12/06/17 12:38 12/06/17 12:45 12/06/17 13:13 Pulse Rate 113 H 94 H Respiratory Rate 20 22 Blood Pressure 69/48 L 133/59 L Pulse Oximetry 94 L 94 L 100 12/06/17 13:14 12/06/17 14:17 Pulse Rate 82 Respiratory Rate 19 Blood Pressure 134/70 Pulse Oximetry 98 100 Intake & Output 12/05/17 12/06/17 12/06/17 18:59 06:59 18:59 Intake Total 1999 Balance 1999 Weight 58.967 kg Intake: IV 1999 NS Inj 1,000 ML @ Wide Open IV. 1999 SIG BOLUS [facility] Rx#:[id number] Narrative: General: Well-developed, alert, and in no acute distress. Appears stated age HEENT: Atraumatic, PERRL, non-icteric sclera and no conjunctival injection, moist mucous membranes Neck: Supple, non-tender without masses or lymphadenopathy, trachea midline Cardiac: Regular rate and rhythm without murmurs or gallops Pulmonary: Non-labored breathing. Lungs clear to auscultation bilaterally with good air movement Abdomen: Normal bowel sounds, soft and non-tender without rebound or guarding Extremities: No edema, 2+ pedal pulses, capillary refill less than 2 seconds Skin: Many scratches to all 4 extremities. Multiple scarred lesions to the extremities that appear to be due to chronic irritation. Results - Labs Result diagrams: 12/06/17 12:53 12/06/17 12:53 Abnormal lab results 12/06/17 12/06/17 12/06/17 Range/Units 12:53 12:53 12:53 Hgb 15.4 H (11.6-15.3) gm/dL APTT 21.8 L (24.3-30.1) sec O2 Saturation (90-100) % ABG pCO2 (38-42) mmHg ABG Base Excess (-2-2) mmol/L Carboxyhemoglobin (0-4) % Potassium 3.4 L (3.5-5.1) meq/L Chloride 108 H (98-107) meq/L Carbon Dioxide 20.7 L (21.0-32.0) meq/L Estimated GFR 58 L (>89) mL/min Random Glucose 250 H (74-106) mg/dL Lactic Acid (0.4-2.0) mmol/L Calcium 7.6 L (8.5-10.1) mg/dL AST 12 L (15-37) U/L Troponin I Less than 0.02 L (0.02-0.05) ng/mL Total Protein 5.5 L (6.4-8.2) g/dL Albumin 2.6 L (3.4-5.0) g/dL Urine Glucose (UA) (Negative) mg/dL Urine Occult Blood (Negative) Amorphous Sediment (None) /hpf Urine Bacteria (None) /hpf Urine Mucus (Occasional) /lpf 12/06/17 12/06/17 12/06/17 Range/Units 12:55 12:57 16:12 Hgb (11.6-15.3) gm/dL APTT (24.3-30.1) sec O2 Saturation 89 L* (90-100) % ABG pCO2 35 L (38-42) mmHg ABG Base Excess -2.3 L (-2-2) mmol/L Carboxyhemoglobin 4.2 H (0-4) % Potassium (3.5-5.1) meq/L Chloride (98-107) meq/L Carbon Dioxide (21.0-32.0) meq/L Estimated GFR (>89) mL/min Random Glucose (74-106) mg/dL Lactic Acid 2.6 H (0.4-2.0) mmol/L Calcium (8.5-10.1) mg/dL AST (15-37) U/L Troponin I (0.02-0.05) ng/mL Total Protein (6.4-8.2) g/dL Albumin (3.4-5.0) g/dL Urine Glucose (UA) 150 H (Negative) mg/dL Urine Occult Blood Small H (Negative) Amorphous Sediment Rare H (None) /hpf Urine Bacteria Rare H (None) /hpf Urine Mucus Few H (Occasional) /lpf Short CBC 12/06/17 Range/Units 12:53 WBC 9.4 (4.0-11.0) th/mm3 Hgb 15.4 H (11.6-15.3) gm/dL Hct 44.4 (35.0-46.0) % Plt Count 428 (150-450) th/mm3 BMP 12/06/17 12:53 Sodium 143 Potassium 3.4 L Chloride 108 H Carbon Dioxide 20.7 L BUN 18 Creatinine 1.00 Calcium 7.6 L Cardiac Enzymes 12/06/17 12/06/17 Range/Units 12:53 12:53 Total Creatine Kinase 77 Cancelled (26-192) U/L Troponin I Less than 0.02 L (0.02-0.05) ng/mL Liver Function 12/06/17 Range/Units 12:53 Total Bilirubin 0.2 (0.2-1.0) mg/dL AST 12 L (15-37) U/L ALT 14 (10-53) U/L Alkaline Phosphatase 91 (45-117) U/L Albumin 2.6 L (3.4-5.0) g/dL Urine 12/06/17 Range/Units 16:12 Urine Color Straw (Yellw/Straw) Urine Clarity Clear (Clear) Urine pH 6.0 (5.0-8.5) Ur Specific [place] 1.005 (1.002-1.035) Urine Protein Negative (Neg-Trace) mg/dL Urine Glucose (UA) 150 H (Negative) mg/dL - Imaging Impressions Chest X-Ray 12/06/17 12:42 CONCLUSION: 1. No acute cardiopulmonary disease. Caprini VTE Risk Assessment Caprini VTE Risk Assessment: Moderate/High Risk (score >= 2) Caprini Risk Assessment Model: Point Value = 1 Point Value = 2 Point Value = 3 Point Value = 5 Age 41-60 Minor surgery BMI > 25 kg/m2 Swollen legs Varicose veins or History of unexplained or recurrent spontaneous Oral contraceptives or hormone replacement Sepsis (< 1 month) Serious lung disease, including pneumonia (< 1 month) Abnormal pulmonary function Acute myocardial infarction Congestive heart failure (< 1 month) History of inflammatory bowel disease Medical patient at bed rest Age 61-74 Arthroscopic surgery Major open surgery (> 45 min) Laparoscopic surgery (> 45 min) Malignancy Confined to bed (> 72 hours) Immobilizing plaster cast Central venous access Age >= 75 History of VTE Family history of VTE Factor V Leiden Prothrombin [id number] Lupus anticoagulant Anticardiolipin antibodies Elevated serum homocysteine Heparin-induced thrombocytopenia Other congenital or acquired thrombophilia Stroke (< 1 month) Elective arthroplasty Hip, pelvis, or leg fracture Acute spinal cord injury (< 1 month) Prophylaxis Regimen: Total Risk Factor Score Risk Level Prophylaxis Regimen 0-1 Low Early ambulation 2 Moderate Order ONE of the following: *Sequential Compression Device (SCD) *Heparin 5000 units SQ BID 3-4 Higher Order ONE of the following medications: *Heparin 5000 units SQ TID *Enoxaparin/Lovenox 40 mg SQ daily (WT < 150 kg, CrCl > 30 mL/min) *Enoxaparin/Lovenox 30 mg SQ daily (WT < 150 kg, CrCl > 10-29 mL/min) *Enoxaparin/Lovenox 30 mg SQ BID (WT < 150 kg, CrCl > 30 mL/min) AND/OR *Sequential Compression Device (SCD) 5 or more Highest Order ONE of the following medications: *Heparin 5000 units SQ TID (Preferred with Epidurals) *Enoxaparin/Lovenox 40 mg SQ daily (WT < 150 kg, CrCl > 30 mL/min) *Enoxaparin/Lovenox 30 mg SQ daily (WT < 150 kg, CrCl > 10-29 mL/min) *Enoxaparin/Lovenox 30 mg SQ BID (WT < 150 kg, CrCl > 30 mL/min) AND *Sequential Compression Device (SCD) Assessment and Plan - Assessment (1) Anaphylaxis caused by sulfite salt Code(s): T50.3X1A - Poisoning by electrolytic, caloric and water-balance agents , accidental (unintentional), initial encounter Status: Resolved (2) Skin lesion Code(s): L98.9 - Disorder of the skin and subcutaneous tissue, unspecified Status: Chronic (3) Hypertension Code(s): I10 - Essential (primary) hypertension Status: Acute (4) Hyperlipemia Code(s): E78.5 - Hyperlipidemia, unspecified Status: Acute - Assessment and Plan Patient is a 51-year-old female admitted after an episode of anaphylactic shock. Anaphylactic shock -This episode may have been related to Bactrim. She took this medicine for the first time 5-15 minutes before her onset of symptoms. This is an unusual time course for the first time of taking a medication, and unusual time course for a p.o. medication. It is unclear if this was the cause of the episode, however due to its severity she should avoid taking Bactrim in the future -She was stabilized in the ED with IM epinephrine, IV Decadron, Benadryl, Pepcid , and 2 L of IV fluids. -We will continue to monitor her vitals -Follow-up blood cultures drawn in the ED Chest pain -There is no change from her baseline and her chest pain and shortness of breath. -Troponin 1 was negative. -EKG in the ED was of poor quality and difficult to interpret. Repeat EKG has been ordered. Diabetes mellitus -She reports poor control of her diabetes at home. She is unsure what her most recent A1C was -Continue home medication Levemir 30 units twice daily -She reports she has not been using her sliding scale insulin. Start low-dose sliding scale insulin during hospitalization Skin lesions -Her skin lesions appear to be due to chronic irritation, likely secondary to scratching. She does have a history of multiple scratches from a kitten, however these lesions do not appear to be infected. -Benadryl every 6 hours as needed itching Hypertension -Her vitals have stabilized after ED resuscitation -Continue home medication atenolol 25 mg daily Hyperlipidemia -Continue home medication atorvastatin 10 mg at bedtime Fluids: IV to Hep-Lock Electrolytes: BNP in the ED showed mild metabolic abnormalities including potassium of 3.4. This may have been related to her episode of anaphylaxis. Repeat BMP in the morning Nutrition: Regular diet as tolerated GI prophylaxis: Not indicated VTE prophylaxis: Bilateral SCDs
[2017-12-06] MEDS: Insulin NovoLOG Aspart Correctional Sugar Inj SQ SCH (22:51)
[2017-12-06] MEDS: Insulin Detemir Inj 1,000 UNIT/10 ML Vial SQ SCH (22:51)
[2017-12-06] MEDS: Sodium Chloride 0.9% 2 ML Flush BID IV.FLUSH SCH (22:53)
[2017-12-07 00:04] LABS: Glucose,Random 806 mg/dL (74-106)
[2017-12-07] MEDS: Insulin NovoLOG Aspart Correctional Sugar Inj SQ SCH ×3 (01:12→13:03)
[2017-12-07] MEDS: Insulin Detemir Inj 1,000 UNIT/10 ML Vial SQ SCH (08:37)
[2017-12-07] MEDS: Sodium Chloride 0.9% 2 ML Flush BID IV.FLUSH SCH (08:37)
[2017-12-07 08:49] LABS: Calcium 9.3 mg/dL (8.5-10.1); Carbon Dioxide 23.6 meq/L (21.0-32.0); Potassium 3.4 meq/L (3.5-5.1)
[2017-12-07] MEDS ORDERED: Atenolol 25 MG Tablet PO SCH (09:00)
--- NOTE | 2017-12-07 11:07 | P.PNFP ---
Subjective Interval history: Patient had elevated blood sugars overnight, 806, 590, 372, 178, 167. Hyperglycemic episode most likely related to patient receiving Decadron in the ED. Patient also to receive several units of aspart. When entering the room, nurse reports that patient had a Accu-Chek of 46. Patient was given glucose. After speaking with the patient, it was decided to decrease patient's Levemir to 10 units BID. Patient reports that he usually knows when she is hypoglycemic due to symptoms of irritability and sweating. Patient states that she was not having those symptoms this morning. She denies fevers, chest pain, shortness of breath, and nausea and vomiting. <Jigna Dumont - 12/07/17 12:04> Results - Labs Result diagrams: 12/06/17 12:53 12/07/17 05:33 <Bria Stinson - 12/07/17 12:52> Abnormal lab results 12/06/17 12/06/17 12/06/17 Range/Units 12:53 12:53 12:53 Hgb 15.4 H (11.6-15.3) gm/dL APTT 21.8 L (24.3-30.1) sec O2 Saturation (90-100) % ABG pCO2 (38-42) mmHg ABG Base Excess (-2-2) mmol/L Carboxyhemoglobin (0-4) % Potassium 3.4 L (3.5-5.1) meq/L Chloride 108 H (98-107) meq/L Carbon Dioxide 20.7 L (21.0-32.0) meq/L BUN (7-18) mg/dL Creatinine (0.50-1.00) mg/dL Estimated GFR 58 L (>89) mL/min POC Glucose (68-110) mg/dl Random Glucose 250 H (74-106) mg/dL Lactic Acid (0.4-2.0) mmol/L Calcium 7.6 L (8.5-10.1) mg/dL AST 12 L (15-37) U/L Troponin I Less than 0.02 L (0.02-0.05) ng/mL Total Protein 5.5 L (6.4-8.2) g/dL Albumin 2.6 L (3.4-5.0) g/dL Urine Glucose (UA) (Negative) mg/dL Urine Occult Blood (Negative) Amorphous Sediment (None) /hpf Urine Bacteria (None) /hpf Urine Mucus (Occasional) /lpf 12/06/17 12/06/17 12/06/17 Range/Units 12:55 12:57 16:12 Hgb (11.6-15.3) gm/dL APTT (24.3-30.1) sec O2 Saturation 89 L* (90-100) % ABG pCO2 35 L (38-42) mmHg ABG Base Excess -2.3 L (-2-2) mmol/L Carboxyhemoglobin 4.2 H (0-4) % Potassium (3.5-5.1) meq/L Chloride (98-107) meq/L Carbon Dioxide (21.0-32.0) meq/L BUN (7-18) mg/dL Creatinine (0.50-1.00) mg/dL Estimated GFR (>89) mL/min POC Glucose (68-110) mg/dl Random Glucose (74-106) mg/dL Lactic Acid 2.6 H (0.4-2.0) mmol/L Calcium (8.5-10.1) mg/dL AST (15-37) U/L Troponin I (0.02-0.05) ng/mL Total Protein (6.4-8.2) g/dL Albumin (3.4-5.0) g/dL Urine Glucose (UA) 150 H (Negative) mg/dL Urine Occult Blood Small H (Negative) Amorphous Sediment Rare H (None) /hpf Urine Bacteria Rare H (None) /hpf Urine Mucus Few H (Occasional) /lpf 12/06/17 12/06/17 12/07/17 Range/Units 22:11 23:17 01:06 Hgb (11.6-15.3) gm/dL APTT (24.3-30.1) sec O2 Saturation (90-100) % ABG pCO2 (38-42) mmHg ABG Base Excess (-2-2) mmol/L Carboxyhemoglobin (0-4) % Potassium (3.5-5.1) meq/L Chloride (98-107) meq/L Carbon Dioxide (21.0-32.0) meq/L BUN (7-18) mg/dL Creatinine (0.50-1.00) mg/dL Estimated GFR (>89) mL/min POC Glucose Greater than 600 H* 590 H* (68-110) mg/dl Random Glucose 806 H* D (74-106) mg/dL Lactic Acid (0.4-2.0) mmol/L Calcium (8.5-10.1) mg/dL AST (15-37) U/L Troponin I Less than 0.02 L (0.02-0.05) ng/mL Total Protein (6.4-8.2) g/dL Albumin (3.4-5.0) g/dL Urine Glucose (UA) (Negative) mg/dL Urine Occult Blood (Negative) Amorphous Sediment (None) /hpf Urine Bacteria (None) /hpf Urine Mucus (Occasional) /lpf 12/07/17 12/07/17 12/07/17 Range/Units 03:14 05:33 06:09 Hgb (11.6-15.3) gm/dL APTT (24.3-30.1) sec O2 Saturation (90-100) % ABG pCO2 (38-42) mmHg ABG Base Excess (-2-2) mmol/L Carboxyhemoglobin (0-4) % Potassium 3.4 L (3.5-5.1) meq/L Chloride (98-107) meq/L Carbon Dioxide (21.0-32.0) meq/L BUN 22 H (7-18) mg/dL Creatinine 1.09 H (0.50-1.00) mg/dL Estimated GFR 53 L (>89) mL/min POC Glucose 372 H 167 H (68-110) mg/dl Random Glucose 178 H D (74-106) mg/dL Lactic Acid (0.4-2.0) mmol/L Calcium (8.5-10.1) mg/dL AST (15-37) U/L Troponin I (0.02-0.05) ng/mL Total Protein (6.4-8.2) g/dL Albumin (3.4-5.0) g/dL Urine Glucose (UA) (Negative) mg/dL Urine Occult Blood (Negative) Amorphous Sediment (None) /hpf Urine Bacteria (None) /hpf Urine Mucus (Occasional) /lpf Short CBC 12/06/17 Range/Units 12:53 WBC 9.4 (4.0-11.0) th/mm3 Hgb 15.4 H (11.6-15.3) gm/dL Hct 44.4 (35.0-46.0) % Plt Count 428 (150-450) th/mm3 BMP 12/06/17 12/07/17 12:53 05:33 Sodium 143 138 Potassium 3.4 L 3.4 L Chloride 108 H 104 Carbon Dioxide 20.7 L 23.6 BUN 18 22 H Creatinine 1.00 1.09 H Calcium 7.6 L 9.3 D Cardiac Enzymes 12/06/17 12/06/17 12/06/17 Range/Units 12:53 12:53 23:17 Total Creatine Kinase 77 Cancelled (26-192) U/L Troponin I Less than 0.02 L Less than 0.02 L (0.02-0.05) ng/mL Liver Function 12/06/17 Range/Units 12:53 Total Bilirubin 0.2 (0.2-1.0) mg/dL AST 12 L (15-37) U/L ALT 14 (10-53) U/L Alkaline Phosphatase 91 (45-117) U/L Albumin 2.6 L (3.4-5.0) g/dL Urine 12/06/17 Range/Units 16:12 Urine Color Straw (Yellw/Straw) Urine Clarity Clear (Clear) Urine pH 6.0 (5.0-8.5) Ur Specific [place] 1.005 (1.002-1.035) Urine Protein Negative (Neg-Trace) mg/dL Urine Glucose (UA) 150 H (Negative) mg/dL <Bria Stinson - 12/07/17 12:52> Abnormal lab results 12/06/17 12/06/17 12/06/17 Range/Units 12:53 12:53 12:53 Hgb 15.4 H (11.6-15.3) gm/dL APTT 21.8 L (24.3-30.1) sec O2 Saturation (90-100) % ABG pCO2 (38-42) mmHg ABG Base Excess (-2-2) mmol/L Carboxyhemoglobin (0-4) % Potassium 3.4 L (3.5-5.1) meq/L Chloride 108 H (98-107) meq/L Carbon Dioxide 20.7 L (21.0-32.0) meq/L BUN (7-18) mg/dL Creatinine (0.50-1.00) mg/dL Estimated GFR 58 L (>89) mL/min POC Glucose (68-110) mg/dl Random Glucose 250 H (74-106) mg/dL Lactic Acid (0.4-2.0) mmol/L Calcium 7.6 L (8.5-10.1) mg/dL AST 12 L (15-37) U/L Troponin I Less than 0.02 L (0.02-0.05) ng/mL Total Protein 5.5 L (6.4-8.2) g/dL Albumin 2.6 L (3.4-5.0) g/dL Urine Glucose (UA) (Negative) mg/dL Urine Occult Blood (Negative) Amorphous Sediment (None) /hpf Urine Bacteria (None) /hpf Urine Mucus (Occasional) /lpf 12/06/17 12/06/17 12/06/17 Range/Units 12:55 12:57 16:12 Hgb (11.6-15.3) gm/dL APTT (24.3-30.1) sec O2 Saturation 89 L* (90-100) % ABG pCO2 35 L (38-42) mmHg ABG Base Excess -2.3 L (-2-2) mmol/L Carboxyhemoglobin 4.2 H (0-4) % Potassium (3.5-5.1) meq/L Chloride (98-107) meq/L Carbon Dioxide (21.0-32.0) meq/L BUN (7-18) mg/dL Creatinine (0.50-1.00) mg/dL Estimated GFR (>89) mL/min POC Glucose (68-110) mg/dl Random Glucose (74-106) mg/dL Lactic Acid 2.6 H (0.4-2.0) mmol/L Calcium (8.5-10.1) mg/dL AST (15-37) U/L Troponin I (0.02-0.05) ng/mL Total Protein (6.4-8.2) g/dL Albumin (3.4-5.0) g/dL Urine Glucose (UA) 150 H (Negative) mg/dL Urine Occult Blood Small H (Negative) Amorphous Sediment Rare H (None) /hpf Urine Bacteria Rare H (None) /hpf Urine Mucus Few H (Occasional) /lpf 12/06/17 12/06/17 12/07/17 Range/Units 22:11 23:17 01:06 Hgb (11.6-15.3) gm/dL APTT (24.3-30.1) sec O2 Saturation (90-100) % ABG pCO2 (38-42) mmHg ABG Base Excess (-2-2) mmol/L Carboxyhemoglobin (0-4) % Potassium (3.5-5.1) meq/L Chloride (98-107) meq/L Carbon Dioxide (21.0-32.0) meq/L BUN (7-18) mg/dL Creatinine (0.50-1.00) mg/dL Estimated GFR (>89) mL/min POC Glucose Greater than 600 H* 590 H* (68-110) mg/dl Random Glucose 806 H* D (74-106) mg/dL Lactic Acid (0.4-2.0) mmol/L Calcium (8.5-10.1) mg/dL AST (15-37) U/L Troponin I Less than 0.02 L (0.02-0.05) ng/mL Total Protein (6.4-8.2) g/dL Albumin (3.4-5.0) g/dL Urine Glucose (UA) (Negative) mg/dL Urine Occult Blood (Negative) Amorphous Sediment (None) /hpf Urine Bacteria (None) /hpf Urine Mucus (Occasional) /lpf 12/07/17 12/07/17 12/07/17 Range/Units 03:14 05:33 06:09 Hgb (11.6-15.3) gm/dL APTT (24.3-30.1) sec O2 Saturation (90-100) % ABG pCO2 (38-42) mmHg ABG Base Excess (-2-2) mmol/L Carboxyhemoglobin (0-4) % Potassium 3.4 L (3.5-5.1) meq/L Chloride (98-107) meq/L Carbon Dioxide (21.0-32.0) meq/L BUN 22 H (7-18) mg/dL Creatinine 1.09 H (0.50-1.00) mg/dL Estimated GFR 53 L (>89) mL/min POC Glucose 372 H 167 H (68-110) mg/dl Random Glucose 178 H D (74-106) mg/dL Lactic Acid (0.4-2.0) mmol/L Calcium (8.5-10.1) mg/dL AST (15-37) U/L Troponin I (0.02-0.05) ng/mL Total Protein (6.4-8.2) g/dL Albumin (3.4-5.0) g/dL Urine Glucose (UA) (Negative) mg/dL Urine Occult Blood (Negative) Amorphous Sediment (None) /hpf Urine Bacteria (None) /hpf Urine Mucus (Occasional) /lpf Short CBC 12/06/17 Range/Units 12:53 WBC 9.4 (4.0-11.0) th/mm3 Hgb 15.4 H (11.6-15.3) gm/dL Hct 44.4 (35.0-46.0) % Plt Count 428 (150-450) th/mm3 BMP 12/06/17 12/07/17 12:53 05:33 Sodium 143 138 Potassium 3.4 L 3.4 L Chloride 108 H 104 Carbon Dioxide 20.7 L 23.6 BUN 18 22 H Creatinine 1.00 1.09 H Calcium 7.6 L 9.3 D Cardiac Enzymes 12/06/17 12/06/17 12/06/17 Range/Units 12:53 12:53 23:17 Total Creatine Kinase 77 Cancelled (26-192) U/L Troponin I Less than 0.02 L Less than 0.02 L (0.02-0.05) ng/mL Liver Function 12/06/17 Range/Units 12:53 Total Bilirubin 0.2 (0.2-1.0) mg/dL AST 12 L (15-37) U/L ALT 14 (10-53) U/L Alkaline Phosphatase 91 (45-117) U/L Albumin 2.6 L (3.4-5.0) g/dL Urine 12/06/17 Range/Units 16:12 Urine Color Straw (Yellw/Straw) Urine Clarity Clear (Clear) Urine pH 6.0 (5.0-8.5) Ur Specific [place] 1.005 (1.002-1.035) Urine Protein Negative (Neg-Trace) mg/dL Urine Glucose (UA) 150 H (Negative) mg/dL <Jigna Dumont T - 12/07/17 11:07> - Imaging Impressions Chest X-Ray 12/06/17 12:42 CONCLUSION: 1. No acute cardiopulmonary disease. <Bria Stinson - 12/07/17 12:52> Impressions Chest X-Ray 12/06/17 12:42 CONCLUSION: 1. No acute cardiopulmonary disease. <Jigna Dumont T - 12/07/17 11:07> Physical Exam Vital signs: Vital Signs 12/06/17 13:13 12/06/17 13:14 12/06/17 14:17 Temperature Pulse Rate 94 H 82 Respiratory Rate 22 19 Blood Pressure 133/59 L 134/70 Pulse Oximetry 100 98 100 12/06/17 20:00 12/06/17 23:40 12/07/17 00:00 Temperature 97.9 F 98.3 F Pulse Rate 90 89 Respiratory Rate 17 18 17 Blood Pressure 187/81 H 186/87 H Pulse Oximetry 97 97 12/07/17 02:21 12/07/17 04:00 12/07/17 07:48 Temperature 98.6 F 98.3 F Pulse Rate 83 92 H Respiratory Rate 17 18 Blood Pressure 137/61 122/59 L Pulse Oximetry 97 98 98 12/07/17 08:00 12/07/17 09:54 12/07/17 12:00 Temperature 98.7 F Pulse Rate 77 Respiratory Rate 18 16 Blood Pressure 143/72 H Pulse Oximetry 98 97 Intake & Output 12/06/17 12/07/17 12/07/17 18:59 06:59 18:59 Intake Total 1999 480 / 480 Balance 1999 480 / 480 Weight 58.967 kg 58.9 kg Intake: IV 1999 NS Inj 1,000 ML @ Wide Open IV. 1999 SIG BOLUS SHAD Rx#:[id number] Oral 480 / 480 Other: # Voids 3 <Bria Stinson - 12/07/17 12:52> Vital Signs 12/06/17 12:38 12/06/17 12:45 12/06/17 13:13 Temperature Pulse Rate 113 H 94 H Respiratory Rate 20 22 Blood Pressure 69/48 L 133/59 L Pulse Oximetry 94 L 94 L 100 12/06/17 13:14 09/24/18 14:17 12/06/17 20:00 Temperature 97.9 F Pulse Rate 82 90 Respiratory Rate 19 17 Blood Pressure 134/70 187/81 H Pulse Oximetry 98 100 97 12/06/17 23:40 12/07/17 00:00 12/07/17 02:21 Temperature 98.3 F Pulse Rate 89 Respiratory Rate 18 17 Blood Pressure 186/87 H Pulse Oximetry 97 97 12/07/17 04:00 12/07/17 07:48 12/07/17 09:54 Temperature 98.6 F 98.3 F Pulse Rate 83 92 H Respiratory Rate 17 18 Blood Pressure 137/61 122/59 L Pulse Oximetry 98 98 98 Intake & Output 12/06/17 12/07/17 12/07/17 18:59 06:59 18:59 Intake Total 1999 480 / 480 Balance 1999 480 / 480 Weight 58.967 kg 58.9 kg Intake: IV 1999 NS Inj 1,000 ML @ Wide Open IV. 1999 SIG BOLUS SHAD Rx#:[id number] Oral 480 / 480 Other: # Voids 3 <Jigna Dumont 12/07/17 11:07> - Constitutional no acute distress, disheveled <Jigna Dumont 12/07/17 12:04> - Routine HEENT Exam Head: Present: normocephalic, atraumatic <Jigna Dumont 12/07/17 12:04> - Routine Respiratory Exam Present: CTA bilaterally. Absent: wheezes, crackles <Jigna Dumont 12/07 12:04> - Routine Cardiovascular Exam Present: RRR. Absent: murmur, gallop, rubs <Jigna Dumont 12/07/17 12:04 > - Routine Abdominal Exam Present: soft, normoactive bowel sounds. Absent: tenderness, distended <Jigna Dumont 12/07/17 12:04> - Routine Extremities Exam Absent: cyanosis, clubbing, edema <Jigna Dumont 12/07/17 12:04> - Routine Skin Exam Comments: Several excoriations on bilateral arms and bilateral legs <Jigna Dumont 12/07/17 12:04> - Routine Neurological Exam Present: alert, oriented X3 <Jigna Dumont T - 12/07/17 12:04> Assessment and Plan - Assessment (1) Anaphylaxis caused by sulfite salt Code(s): T50.3X1A - Poisoning by electrolytic, caloric and water-balance agents , accidental (unintentional), initial encounter Status: Resolved (2) Skin lesion Code(s): L98.9 - Disorder of the skin and subcutaneous tissue, unspecified Status: Chronic (3) Hypertension Code(s): I10 - Essential (primary) hypertension Status: Acute (4) Hyperlipemia Code(s): E78.5 - Hyperlipidemia, unspecified Status: Acute <Bria Stinson - 12/07/17 12:52> (1) Anaphylaxis caused by sulfite salt Code(s): T50.3X1A - Poisoning by electrolytic, caloric and water-balance agents , accidental (unintentional), initial encounter Status: Resolved (2) Skin lesion Code(s): L98.9 - Disorder of the skin and subcutaneous tissue, unspecified Status: Chronic (3) Hypertension Code(s): I10 - Essential (primary) hypertension Status: Acute (4) Hyperlipemia Code(s): E78.5 - Hyperlipidemia, unspecified Status: Acute <Jigna Dumont T - 12/07/17 11:57> - Assessment and Plan Patient is a 51-year-old female admitted after an episode of anaphylactic shock. Anaphylactic shock -This episode may have been related to Bactrim. She took this medicine for the first time 5-15 minutes before her onset of symptoms. This is an unusual time course for the first time of taking a medication, and unusual time course for a p.o. medication. It is unclear if this was the cause of the episode, however due to its severity she should avoid taking Bactrim in the future -She was stabilized in the ED with IM epinephrine, IV Decadron, Benadryl, Pepcid , and 2 L of IV fluids. -Vitals continue to be stable -Blood culture- No growth in 1 day Chest pain-resolved -There is no change from her baseline and her chest pain and shortness of breath. -Troponin 1 was negative. -EKG in the ED-sinus tachycardia Diabetes mellitus -She reports poor control of her diabetes at home. She is unsure what her most recent A1C was -Change Levemir to 10 units BID -medium sliding scale Skin lesions -Her skin lesions appear to be due to chronic irritation, likely secondary to scratching. She does have a history of multiple scratches from a kitten, however these lesions do not appear to be infected. -Benadryl every 6 hours as needed itching Hypertension -Her vitals have stabilized after ED resuscitation -Continue home medication atenolol 25 mg daily Hyperlipidemia -Continue home medication atorvastatin 10 mg at bedtime Fluids: IV to Hep-Lock Electrolytes: monitor and replete as needed Nutrition: Regular diet as tolerated GI prophylaxis: Not indicated VTE prophylaxis: Bilateral SCDs <Jigna Dumont - 12/07/17 12:04> - Attending Attestation Patient was seen, examined and discussed with the medicine B team. I agree with the findings and with the plan. <Bria Stinson - 12/07/17 12:52>
[2017-12-07 12:31] VITALS: BP 143/72; PULSE 77; RESP 16; TEMP 98.7; O2SAT 97
--- NOTE | 2017-12-07 17:49 | ECG ---
Date Performed: 12/06/2017 Time Performed: 12:43:19 PTAGE: 51 years EKG: SINUS TACHYCARDIA WITH SHORT SC INTERVAL POSSIBLE RIGHT ATRIAL ENLARGEMENT POSSIBLE LEFT AT RIAL ENLARGEMENT SEPTAL MYOCARDIAL INFARCTION Since the previous tracing, no significant change noted ABNORMAL ECG PREVIOUS TRACING : 08/14/2015 06.34 DOCTOR: Wilver Stern Interpretating Date/Time 12/07/2017 17:45:16
--- NOTE | 2017-12-07 17:49 | ECG ---
Date Performed: 12/07/2017 Time Performed: 00:52:30 PTAGE: 51 years EKG: Sinus tachycardia. rSr'(V1) - probable normal variant Poor R wave progression - probable no rmal variant Septal ST-T changes are nonspecific Since the previous tracing, no significant change no kt Borderline ECG PREVIOUS TRACING : 12/06/2017 12.43 DOCTOR: Wilver Stern Interpretating Date/Time 12/07/2017 17:45:25
[2017-12-07] MEDS ORDERED: Insulin Detemir Inj 1,000 UNIT/10 ML Vial SQ SCH (21:00)
== END 2017-12-07 14:06 | disposition home or self-care (01) ==
LOC: NEPE 12:37 → NEDA 16:51 → N07 18:13
PROVIDERS: ADMIT Family Medicine; ATTEND Family Medicine